=== PATIENT | male | born 1945 | race African-American/Black ===

== ENCOUNTER 2017-11-11 05:47 | Inpatient (IN) | payer MEDICARE, BC ==
[~2017-11-11] VITALS: Ht 180.3 cm; Wt 81.6 kg
[2017-11-11] VITALS (12 sets, daily range): BP systolic 123–163; BP diastolic 62–78
[2017-11-11] MEDS ORDERED: GLIPIZIDE5 MG ORAL (06:40)
[2017-11-11] MEDS ORDERED: HYDROCHLOROTHIA25 MG ORAL (06:40)
[2017-11-11] MEDS ORDERED: ATORVASTATIN CA20 MG ORAL (06:40)
[2017-11-11] MEDS ORDERED: METFORMIN HCL1000 M1 ORAL (06:40)
[2017-11-11] MEDS ORDERED: ceFAZolin sod 1 GM in NS 55 ML IVPB ONE (07:00)
[2017-11-11] MEDS ORDERED: fentaNYL 100 mcg/2 mL IV ONE (07:09)
[2017-11-11] MEDS ORDERED: Midazolam 2mg/2ml Inj ONE (07:10)
[2017-11-11] MEDS ORDERED: Propofol 200mg/20ml IV ONE (07:10)
[2017-11-11] MEDS ORDERED: Lidocaine 1% MPF 10mg/ml 5ml ONE (07:10)
[2017-11-11] MEDS ORDERED: cefOXitin 2gm Inj ONE (07:16)
[2017-11-11] MEDS ORDERED: Succinylcholine 20mg/ml 10ml vial ONE (07:18)
[2017-11-11] MEDS ORDERED: Zemuron 50mg/5ml Inj IV ONE (07:18)
[2017-11-11] MEDS ORDERED: ProvayBlue 5mg/ml 10ml amp INJ ONE (07:30)
[2017-11-11] MEDS ORDERED: Bupivacaine 0.5% Inj 30 ml vial INJ ONE (07:31)
[2017-11-11] MEDS ORDERED: NS Irrig 1000ml ONE (08:00)
[2017-11-11] MEDS ORDERED: LR 1000ml ONE (08:00)
[2017-11-11] MEDS ORDERED: Sterile Water Irrig 1000ml IRRIG ONE (08:00)
[2017-11-11] MEDS ORDERED: Neostigmine 1mg/ml 10ml Inj ONE (08:00)
--- NOTE | 2017-11-11 08:01 | Pre-Procedure Note/Attestation ---
Pre-Procedure Note/Attestation Complete Prior to Procedure Planned Procedure: not applicable Procedure Narrative: laparoscopic radical prostatectomy Indications for Procedure Pre-Operative Diagnosis: prostate cancer Attestation I attest that I discussed the nature of the procedure; its benefits; risks and complications; and alternatives (and the risks and benefits of such alternatives ), prior to the procedure, with the patient (or the patient's legal sales promotion representative). I attest that, if there was a reasonable possibility of needing a blood transfusion, the patient (or the patient's legal sales promotion representative) was given the [facility] standardized written summary, pursuant to the [place] Blood Safety Act ([place] Health and Safety Code # 1645, as amended). I attest that I re-evaluated the patient just prior to the surgery and that there has been no change in the patient's H&P, except as documented below: Aristeo Kelly MD Nov 11, 2017 08:01
[2017-11-11] MEDS ORDERED: NS Irrig 1000ml IRRIG ONE (08:36)
[2017-11-11] MEDS ORDERED: Morphine Sulfate 10mg/ml Inj ONE (09:15)
--- NOTE | 2017-11-11 09:15 | Anethesia Preoperative Eval ---
Anesthesia Pre-op PMH/ROS General Date of Evaluation: Nov 11, 2017 Time of Evaluation: 07:20 Anesthesiologist: Jose Alejandro ASA Score: ASA 3 Mallampati Score Class I : Soft palate, uvula, fauces, pillars visible Class II: Soft palate, uvula, fauces visible Class III: Soft palate, base of uvula visible Class IV: Only hard plate visible Mallampati Classification: Class II Surgeon: Robin Diagnosis: Prostate CA Surgical Procedure: Laparoscopic prostatectomy Anesthesia History: none Social History: smoking - h/o, current smoker Family History: no anesthesia problems Allergies: Coded Allergies: No Known Allergies (Unverified , 11/10/17) Past Medical History Cardiovascular: Reports: HTN, arrhythmia - 1st oA-V block; Denies: CAD, [place], valve dz, other Pulmonary: Denies: asthma, COPD, JAMAL, other Gastrointestinal/Genitourinary: Reports: GERD, other - Prostate CA with enlargement; Denies: CRI, ESRD Neurologic/Psychiatric: Denies: dementia, CVA, depression/anxiety, TIA, other Endocrine: Reports: DM - on pills; Denies: hypothyroidism, steroids, other HEENT: Denies: cataract (L), cataract (R), glaucoma, [place] (L), [place] (R), other Hematology/Immune: Reports: anemia - mild; Denies: DVT, bleeding disorder, other Musculoskeletal/Integumentary: Denies: OA, RA, DJD, DDD, edema, other PMH Narrative: as above PSxH Narrative: Hip arthroplasty Anesthesia Pre-op Phys. Exam Physician Exam Last Vital Signs Date Time Temp Pulse Resp B/P (MAP) Pulse Ox O2 Delivery O2 Flow Rate FiO2 11/11/17 06:43 Room Air 11/11/17 06:19 97.8 68 18 131/67 (88) 99 97.8 Constitutional: NAD Neurologic: CN 2-12 intact Cardiovascular: RRR, no M/R/G Respiratory: CTA Gastrointestinal: S/NT/ND Airway Exam Mallampati Score: Class II MO: full Neck: flexible ROM: full Teeth: intact Dentures: no upper, no lower Anesthesia Pre-op A/P Labs see chart Accucheck 89 at admission Studies Pre-op Studies: EKG - see charrt, CXR - WNL, echo - EF 60% Risk Assessment & Plan Assessment: ASA 3 Plan: GA with ETT possible intraoperative blood transfusion Status Change Before Surgery: No Pre-Antibiotics Drug: Cefoxitin 2gr Given Within 1 Hr of Incision: Yes Time Given: 08:20 Darrick Blount MD Nov 11, 2017 09:15
[2017-11-11] MEDS ORDERED: Ketorolac 30mg Inj ONE (09:16)
[2017-11-11] MEDS ORDERED: Glycopyrrolate 0.2mg/ml 1ml Vial ONE (09:16)
[2017-11-11] MEDS ORDERED: Sodium Chloride 10ml vial INJ ONE (09:19)
[2017-11-11] MEDS ORDERED: LR 1000ml 1,000 ML IVLG SCH (09:51)
[2017-11-11] MEDS ORDERED: fentaNYL 100 mcg/2 mL IV PRN (10:00)
[2017-11-11] MEDS ORDERED: DiphenhydrAMINE 50mg/ml Inj IVP PRN (10:00)
[2017-11-11] MEDS ORDERED: Morphine Sulfate 2mg/ml Inj(IV/IM USE ONLY) IVP PRN (10:00)
--- NOTE | 2017-11-11 10:38 | Brief Operative Note ---
Immediate Post Operative Note Operative Note Pre-op Diagnosis: prostate cancer Procedure: laparoscopic prostatectomy Post-op Diagnosis: same Post-op Diagnosis: same as pre-op Surgeon: suresh kelly Harvest Worker Field Crop: awilda cook Anesthesia: general Specimen: yes Complications: none Condition: stable Fluids: 1000 Estimated Blood Loss: minimal Drains: MELANI Implant(s) used?: No Aristeo Kelly MD Nov 11, 2017 10:38
[2017-11-11] MEDS ORDERED: Norco 5mg/325mg tab ORAL PRN (10:45)
[2017-11-11] MEDS ORDERED: Ketorolac 30mg Inj IV PRN (10:45)
--- NOTE | 2017-11-11 11:53 | Immediate Post-Op Evaluation ---
Immediate Post-Op Evalulation Immediate Post-Op Evalulation Procedure: Radical laparoscopic prostatectomy Date of Evaluation: Nov 11, 2017 Time of Evaluation: 10:45 IV Fluids: 2500 Blood Products: Albumin 250 Estimated Blood Loss: 200 Urinary Output: n/a Blood Pressure Systolic: 142 Blood Pressure Diastolic: 68 Pulse Rate: 72 Respiratory Rate: 20 O2 Sat by Pulse Oximetry: 98 Temperature (Fahrenheit): 97.8 Pain Score (1-10): 2 Nausea: No Vomiting: No Complications none Patient Status: reacts, patent, extubated, none Hydration Status: adequate Darrick Blount MD Nov 11, 2017 11:53
[2017-11-11 12:09] LABS: BASOPHILS % (AUTO) 0.4 % (0.0-2.0); EOSINOPHILS % (AUTO) 0.4 % (0.0-3.0); HEMATOCRIT 32.1 % (42.0-52.0); HEMOGLOBIN 11.1 G/DL (14.2-18.0); LYMPHOCYTES % (AUTO) 15.2 % (20.0-45.0); MEAN CORPUSCULAR VOLUME 90 FL (80-99); MONOCYTES % (AUTO) 5.4 % (1.0-10.0); NEUTROPHILS % (AUTO) 78.6 % (45.0-75.0); PLATELET COUNT 174 K/UL (150-450); RED BLOOD COUNT 3.56 M/UL (4.70-6.10); RED CELL DISTRIBUTION WIDTH 11.1 % (11.6-14.8); WHITE BLOOD COUNT 10.6 K/UL (4.8-10.8)
[2017-11-11 12:23] LABS: ANION GAP 10 mmol/L (5-15); BLOOD UREA NITROGEN 16 mg/dL (7-18); CALCIUM 8.5 MG/DL (8.5-10.1); CARBON DIOXIDE 28 MMOL/L (21-32); CHLORIDE 103 MMOL/L (98-107); CREATININE 1.2 MG/DL (0.55-1.30); POTASSIUM 4.3 MMOL/L (3.5-5.1); SODIUM 141 MMOL/L (136-145)
[2017-11-11] MEDS: D5 1/2NS w/KCl 20mEq 1,000 ML IV SCH (15:06)
[2017-11-11] MEDS: ceFAZolin sod 1 GM in D5W 55 ML IV SCH (15:07)
[2017-11-11] MEDS: Docusate 100mg cap ORAL SCH (18:26)
[2017-11-11] MEDS: Ketorolac 30mg Inj IV SCH ×2 (18:26→23:02)
--- NOTE | 2017-11-11 22:45 | Operative Note - Dictated ---
DATE OF OPERATION: 11/11/2017 PREOPERATIVE DIAGNOSIS: Prostate cancer. POSTOPERATIVE DIAGNOSIS: Prostate cancer. RICE FARMER SURGEON: Abdelrahman Garrido M.D. OPERATING SURGEON: Aristeo Kelly M.D. FINDINGS: Enlarged prostate. INDICATION FOR SURGERY: The patient was diagnosed with prostate cancer, Karl 6, multifocal. Treatment options were explained to him at great length including all potential complications. All the potential different treatment options, such as radiation therapy, hormone therapy, and surgery were discussed. He elected to have laparoscopic radical prostatectomy and signed a consent. He was brought to the operating room, placed in supine position, and prepped and draped in standard fashion. Under general anesthesia, Veress needle was placed at the umbilicus and 5 trocars two 12 and three 5s were placed in the standard position. Dissection started underneath the bladder mobilizing seminal vesicles and vas deferens, which was in the midline. The fascia was opened. After that, dissection was carried anteriorly bladder from the pubis. Endopelvic fascia was opened with Harmonic Scalpel. Endo-CHARLES was placed in the dorsal venous complex. Bladder neck sparing technique was used to separate bladder from the prostate and the prostate was removed preserving both neurovascular bundles. After that, the anastomosis was created over 20-Italian Rodney catheter with running 2-0 Monocryl suture. The wound was irrigated. There was a small leak on the right side, which was reinforced with [id number] suture. After that, there was no evidence of leakage. With bladder irrigation, MELANI drain was placed and left indwelling and the prostate was removed with seminal vesicle for pathologic examination. The patient tolerated the procedure well. No other complications. ESTIMATED BLOOD LOSS: Approximately 100 mL. Aristeo Kelly M.D. DR: MIRIAM JOB#: [id number] CC:
--- NOTE | 2017-11-11 23:45 | Operative Note - Dictated ---
DATE OF OPERATION: 11/11/2017 SURGEON: Abdelrahman Garrido M.D. MEDIA TRAFFIC MANAGER: Aristeo Kelly M.D. ANESTHESIA: General endotracheal. ANESTHESIOLOGIST: Darrick Blount M.D. PREOPERATIVE DIAGNOSIS: Prostate cancer. POSTOPERATIVE DIAGNOSIS: Prostate cancer and intraabdominal adhesions. PROCEDURE PERFORMED: Laparoscopic lysis of adhesions. BACKGROUND: The patient is a 70-year-old male with prostate cancer, who was elected to undergo laparoscopic prostatectomy. During laparoscopic prostatectomy, dense adhesions in the left lower quadrant between the small bowel and sigmoid colon, were found to the abdominal wall that could prevent safe access to the prostate gland and I was requested by urological surgeon, Dr. Aristeo Kelly, to assist in lysis of adhesions. INTRAOPERATIVE FINDINGS: As above. OPERATIVE PROCEDURE: A pneumoperitoneum was created by Dr. Aristeo Kelly and two 5 mm trocars were placed in the right abdomen. After that, the above-mentioned findings were appreciated. I started lysis using sharp and blunt dissections through the right side 5 mm trocar. I took down the adhesions between the omentum and the anterior abdominal wall. The sigmoid was densely adhered to the anterior abdominal wall and the pelvic inlet. Using endoscopic marivel, the adhesions between the sigmoid and the pelvic intlet were sharply taken down. Complete mobilization of the sigmoid was achieved. That allowed to reflect the bowel. By this maneuver, safe access to the prostate gland was gained and the rest of the procedure was performed by Dr. Aristeo Kelly and he will dictate the report in detail separately. Abdelrahman Garrido M.D. DR: ANDREW JOB#: [id number] CC: MALINI
[2017-11-12] VITALS: BP 114/63
[2017-11-12] MEDS: D5 1/2NS w/KCl 20mEq 1,000 ML IV SCH ×2 (00:07→10:00)
[2017-11-12] MEDS: ceFAZolin sod 1 GM in D5W 55 ML IV SCH (00:07)
[2017-11-12 04:00] VITALS: BP 126/61
[2017-11-12] MEDS: Ketorolac 30mg Inj IV SCH ×4 (04:55→22:02)
[2017-11-12 07:53] LABS: BASOPHILS % (AUTO) 0.7 % (0.0-2.0); EOSINOPHILS % (AUTO) 0.9 % (0.0-3.0); HEMATOCRIT 27.4 % (42.0-52.0); HEMOGLOBIN 9.6 G/DL (14.2-18.0); LYMPHOCYTES % (AUTO) 18.1 % (20.0-45.0); MEAN CORPUSCULAR VOLUME 89 FL (80-99); MONOCYTES % (AUTO) 8.6 % (1.0-10.0); NEUTROPHILS % (AUTO) 71.8 % (45.0-75.0); PLATELET COUNT 151 K/UL (150-450); RED BLOOD COUNT 3.08 M/UL (4.70-6.10); RED CELL DISTRIBUTION WIDTH 10.6 % (11.6-14.8); WHITE BLOOD COUNT 5.4 K/UL (4.8-10.8)
[2017-11-12 07:58] LABS: ANION GAP 5 mmol/L (5-15); BLOOD UREA NITROGEN 11 mg/dL (7-18); CARBON DIOXIDE 26 MMOL/L (21-32); CHLORIDE 105 MMOL/L (98-107); CREATININE 0.9 MG/DL (0.55-1.30); POTASSIUM 3.5 MMOL/L (3.5-5.1); SODIUM 136 MMOL/L (136-145)
[2017-11-12 08:00] VITALS: BP 116/66
[2017-11-12] MEDS: Docusate 100mg cap ORAL SCH ×2 (09:44→17:22)
[2017-11-12 12:00] VITALS: BP 124/65
--- NOTE | 2017-11-12 14:06 | 48 Hour Post Anesthesia Eval ---
Post Anesthesia Evaluation Procedure: Radical laparoscopic prostatectomy Date of Evaluation: Nov 12, 2017 Time of Evaluation: 14:05 Blood Pressure Systolic: 136 0: 72 Pulse Rate: 64 Respiratory Rate: 20 Temperature (Fahrenheit): 97.8 O2 Sat by Pulse Oximetry: 98 Airway: patent Nausea: No Vomiting: No Pain Intensity: 3 Hydration Status: adequate Cardiopulmonary Status: stable Mental Status/LOC: patient returned to baseline Follow-up Care/Observations: n/a Post-Anesthesia Complications: none Follow-up care needed: N/A Darrick Blount MD Nov 12, 2017 14:06
[2017-11-12 16:00] VITALS: BP 108/56
[2017-11-12 20:00] VITALS: BP 121/72
--- NOTE | 2017-11-12 20:15 | History and Physical Report ---
DATE OF ADMISSION: 11/12/2017 HISTORY AND PHYSICAL/INTERNAL MEDICINE CONSULTATION HISTORY OF PRESENT ILLNESS: This is a 72-year-old male, who has undergone laparoscopic radical prostatectomy for prostate carcinoma. He is doing well postop day #1. PAST MEDICAL HISTORY: Notable for diabetes mellitus, hypertension, and hyperlipidemia. HOME MEDICATIONS: Glipizide, Lipitor, lisinopril, and metformin. ALLERGIES: None reported. REVIEW OF SYSTEMS: He denies any headaches, hematemesis, hematochezia, night sweats, or weight loss. PHYSICAL EXAMINATION: GENERAL: Reveals a 72-year-old male. VITAL SIGNS: Blood pressure 130/70, heart rate . He is afebrile. HEENT: Unremarkable. LUNGS: Clear breath sounds bilaterally. ABDOMEN: Soft. NEUROLOGIC: Nonfocal. LABORATORY TESTING: Lab testing shows hemoglobin 11.6 and white count 5.4. Chemistries are unremarkable except for creatinine of 0.9 and glucose 153. IMPRESSION: 1. Prostate carcinoma, status post prostatectomy. 2. Hypertension. 3. Diabetes mellitus. 4. Hyperlipidemia. DISCUSSION: Continue medications and postoperative care. The patient will be followed carefully by Dr. Kelly and myself. Presently, his laboratories are satisfactory. I will follow as yarn carrier. Pipo Salinas M.D. DR: MIKIE JOB#: [id number] CC:
[2017-11-13] VITALS: BP 116/65
[2017-11-13 04:00] VITALS: BP 127/78
[2017-11-13] MEDS: Ketorolac 30mg Inj IV SCH (04:34)
[2017-11-13] MEDS ORDERED: NovoLOG Insulin Flexpen SUBQ SCH (06:30)
[2017-11-13 07:05] LABS: BASOPHILS % (AUTO) 0.9 % (0.0-2.0); EOSINOPHILS % (AUTO) 2.9 % (0.0-3.0); LYMPHOCYTES % (AUTO) 33.6 % (20.0-45.0); MEAN CORPUSCULAR VOLUME 89 FL (80-99); MONOCYTES % (AUTO) 11.2 % (1.0-10.0); NEUTROPHILS % (AUTO) 51.4 % (45.0-75.0); PLATELET COUNT 142 K/UL (150-450); RED BLOOD COUNT 3.15 M/UL (4.70-6.10); RED CELL DISTRIBUTION WIDTH 10.4 % (11.6-14.8); WHITE BLOOD COUNT 5.6 K/UL (4.8-10.8)
[2017-11-13 08:00] VITALS: BP 130/76
[2017-11-13] MEDS: Docusate 100mg cap ORAL SCH (08:34)
--- NOTE | 2017-11-13 08:42 | Pulmonology Progress Note ---
Assessment/Plan Assessment/Plan IMPRESSION: 1. Prostate carcinoma, status post prostatectomy. 2. Hypertension. 3. Diabetes mellitus. 4. Hyperlipidemia. DISCUSSION: Continue medications and postoperative care. The patient will be followed carefully by Dr. Kelly and myself. Presently, his laboratories are satisfactory. Tolerating diet Will dc home PO levaquin, Colace and [place] Subjective Interval Events: Doing well Constitutional: Reports: no symptoms HEENT: Repors: no symptoms Respiratory: Reports: no symptoms Cardiovascular: Reports: no symptoms Gastrointestinal/Abdominal: Reports: no symptoms Allergies: Coded Allergies: No Known Allergies (Unverified , 11/10/17) Objective Last 24 Hour Vital Signs Date Time Temp Pulse Resp B/P (MAP) Pulse Ox O2 Delivery O2 Flow Rate FiO2 11/13/17 04:00 98.8 71 20 127/78 (94) 97 98.8 11/13/17 00:00 98.2 66 20 116/65 (82) 97 98.2 11/12/17 21:00 Room Air 11/12/17 20:00 98.3 72 18 121/72 (88) 98 98.3 11/12/17 16:00 98.6 75 18 108/56 (73) 96 98.6 11/12/17 14:06 208.0 64 20 98 11/12/17 12:00 97.3 86 20 124/65 (84) 96 97.3 11/12/17 09:00 Nasal Cannula 2.0 Intake and Output 11/12/17 11/13/17 19:00 07:00 Intake Total 1500 ml Output Total 2055 ml 2200 ml Balance -555 ml -2200 ml Intake Oral 1200 ml IV Total 300 ml Output Urine Total 2000 ml 2200 ml Drainage Total 55 ml General Appearance: no acute distress HEENT: normocephalic Respiratory/Chest: chest wall non-tender, lungs clear Cardiovascular: normal peripheral pulses, normal rate Laboratory Tests 11/13/17 05:10: White Blood Count 5.6, Red Blood Count 3.15L, Hemoglobin 10.0L, Hematocrit 28.0L , Mean Corpuscular Volume 89, Mean Corpuscular Hemoglobin 31.6H, Mean Corpuscular Hemoglobin Concent 35.6, Red Cell Distribution Width 10.4L, Platelet Count 142L, Mean Platelet Volume 7.0, Neutrophils (%) (Auto) 51.4, Lymphocytes (%) (Auto) 33.6, Monocytes (%) (Auto) 11.2H, Eosinophils (%) (Auto) 2.9, Basophils (%) (Auto) 0.9 Current Medications Medications (Trade) Dose Ordered Sig/Eddie Route PRN Reason Start Time Stop Time Status Last Admin Dose Admin Acetaminophen (Tylenol) 650 mg Q4H PRN ORAL FEVER 11/11/17 10:45 12/11/17 10:44 Acetaminophen (Tylenol) 650 mg Q6H PRN ORAL Mild Pain (Pain Scale 1-3) 11/11/17 10:45 12/11/17 10:44 Acetaminophen/ Hydrocodone Bitart ([place] 5/325) 1 tab Q4H PRN ORAL Moderate Pain (Pain Scale 4-6) 11/11/17 10:45 11/18/17 10:44 11/11/17 15:07 Dextrose (Dextrose 50%) 25 ml STAT PRN IV Hypoglycemia 11/12/17 22:45 12/12/17 22:44 Dextrose (Dextrose 50%) 50 ml STAT PRN IV Hypoglycemia 11/12/17 22:45 12/12/17 22:44 Docusate Sodium (Colace) 100 mg TWICE A DAY ORAL 11/11/17 18:00 12/11/17 17:59 11/13/17 08:34 Glipizide (Glucotrol) 2.5 mg BID ORAL 11/13/17 09:00 12/13/17 08:59 11/13/17 08:34 Hydromorphone HCl (Dilaudid) 2 mg Q3H PRN IVP pain score 7-10 11/11/17 10:45 11/18/17 10:44 Insulin Aspart (NovoLOG) BEFORE MEALS AND HS SUBQ 11/13/17 06:30 12/13/17 06:29 Ketorolac Tromethamine (Toradol 30mg) 15 mg Q6H IV 11/11/17 16:45 11/16/17 10:44 11/13/17 04:34 Levofloxacin (Levaquin) 250 mg DAILY ORAL 11/13/17 09:00 11/20/17 08:59 11/13/17 08:34 Metformin HCl (Glucophage) 1,000 mg BID ORAL 11/13/17 09:00 12/13/17 08:59 11/13/17 08:34 Ondansetron HCl (Zofran) 4 mg Q6H PRN IVP Nausea & Vomiting 11/11/17 10:45 12/11/17 10:44 Temazepam (Restoril) 7.5 mg DAILYPRN PRN ORAL Insomnia 11/11/17 10:45 11/18/17 10:44 Pipo Salinas MD Nov 13, 2017 08:42
[2017-11-13] MEDS ORDERED: NORCO 5-325 TA1 EACH ORAL (08:45)
[2017-11-13] MEDS ORDERED: COLACE100 MG ORAL (08:45)
[2017-11-13] MEDS ORDERED: LEVAQUIN250 M1 ORAL (08:45)
[2017-11-13] MEDS ORDERED: metFORMIN 500mg tab ORAL SCH (09:00)
[2017-11-13] MEDS ORDERED: GlipiZIDE 5mg tab ORAL SCH (09:00)
--- NOTE | 2017-11-16 10:50 | Discharge Summary ---
Discharge Summary Hospital Course Date of Admission Nov 11, 2017 at 12:59 Date of Discharge Nov 13, 2017 at 11:44 Admitting Diagnosis prostate cancer Reason for Hospitalization: elective surgery LUCIO Laguna is a 72 year old male who was admitted on Nov 11, 2017 at 12:59 for prostate cancer. Patient was admitted for elective surgery. Consultations dr Salinas IM Procedures s/p by 11/11/17 dr Kelly Laparoscopic radical prostatectomy s/p 11/11/[address] Garrido Laparoscopic lysis of adhesions. Hospital Course Status post surgery course of recovery uneventful initially IV fluids pain management addressed and controlled incision clean dry and intact empiric antibiotic Rodney to gravity with sufficient urine output diet as tolerated, able to tolerate ,antiemetics pr MELANI drain with serosanguineous drainage , output closely monitored bowel regimen instituted home medications resumed patient was working with physical therapist, fall precautions maintained patient was cleared for discharge home with home health services Rodney catheter to leg bag, discharge instruction provided outpatient follow-up with surgeon as advised FINAL DIAGNOSES Prostate cancer Status post laparoscopic radical prostatectomy Hypertension Diabetes mellitus Hyperlipidemia Discharge Medications New Medications: Docusate Sodium* (Colace*) 100 Mg Capsule 100 MG ORAL TWICE A DAY for 30 Days, CAP Hydrocodone Bit/Acetaminophen 5-325* ([place] 5-325*) 1 Each Tablet 1 TAB ORAL Q4H PRN for 14 Days, TAB Levofloxacin* (Levaquin*) 250 Mg Tablet 250 MG ORAL DAILY for 7 Days, TAB Continued Medications: Atorvastatin Calcium* (Atorvastatin Calcium*) 20 Mg Tablet 20 MG ORAL BEDTIME, TAB (This prescription has been renewed) Glipizide* (Glipizide*) 5 Mg Tablet 2.5 MG ORAL BIDAC, TAB (This prescription has been renewed) Hydrochlorothiazide* (Hydrochlorothiazide*) 25 Mg Tablet 25 MG ORAL DAILY, TAB (This prescription has been renewed) Metformin Hcl* (Metformin Hcl*) 1,000 Mg Tablet 1000 MG ORAL BID, TAB (This prescription has been renewed) Discharge Condition Upon Discharge: stable Discharge Disposition Patient was discharged to Home with Home Health() Discharge Instructions Discharge Instructions Special Instructions I have been assigned to complete a D/C Summary on this account. I was not involved in the patient management Jing Mcgrath NP Nov 16, 2017 10:50
== END 2017-11-13 11:44 | disposition home health service (06) | DRG 708 ==
LOC: SUR 05:47 → 3E 12:59
PROC: 0DNW4ZZ Release Peritoneum, Percutaneous Endoscopic Approach (ICD-10-PCS; principal; 2017-11-11 07:30)
PROC: 0VT04ZZ Resection of Prostate, Percutaneous Endoscopic Approach (ICD-10-PCS; principal; 2017-11-11 07:30)
DX: C61 Malignant neoplasm of prostate (principal); E11.9 Type 2 diabetes mellitus without complications; I10 Essential (primary) hypertension; E78.5 Hyperlipidemia, unspecified; K66.0 Peritoneal adhesions (postprocedural) (postinfection)
CPT/HCPCS: 36415; 80048; 82962; 85025; 86850; 86900; 86901; 87081; 94003; 94150; J1815; J2250; J2710

== ENCOUNTER 2019-01-05 05:42 | Day surgery (SDC) | payer MEDICARE, BC ==
[~2019-01-05] VITALS: Ht 180.3 cm; Wt 81.6 kg
[2019-01-05] VITALS (11 sets, daily range): BP systolic 131–185; BP diastolic 75–105
[~2019-01-05 05:42] MED LIST: ATORVASTATIN CA20 MG ORAL; COLACE100 MG ORAL; GLIPIZIDE5 MG ORAL; HYDROCHLOROTHIA25 MG ORAL; LEVAQUIN250 M1 ORAL; METFORMIN HCL1000 M1 ORAL; NORCO 5-325 TA1 EACH ORAL
[2019-01-05] MEDS ORDERED: ASPIR 8181 MG ORAL (06:26)
[2019-01-05] MEDS ORDERED: Gentamicin 80mg/100ml Premix IVPB ONE (07:00)
[2019-01-05] MEDS ORDERED: Vancomycin 1gm/D5W 275ml IVPB ONE ×2 (07:00)
--- NOTE | 2019-01-05 07:20 | Anethesia Preoperative Eval ---
Anesthesia Pre-op PMH/ROS General Date of Evaluation: Jan 05, 2019 Anesthesiologist: Carson ASA Score: ASA 2 Mallampati Score Class I : Soft palate, uvula, fauces, pillars visible Class II: Soft palate, uvula, fauces visible Class III: Soft palate, base of uvula visible Class IV: Only hard plate visible Mallampati Classification: Class II Surgeon: Robin Diagnosis: Erectile dysfunction Surgical Procedure: Penile prosthesis Anesthesia History: none Family History: no anesthesia problems Allergies: Coded Allergies: No Known Allergies (Unverified , 01/05/19) Medications: see eMAR Patient NPO?: Yes NPO Date: Jan 04, 2019 NPO Time: 22:00 Past Medical History Cardiovascular: Reports: HTN, other - HLD; Denies: CAD, [place], valve dz, arrhythmia Pulmonary: Denies: asthma, COPD, JAMAL, other Gastrointestinal/Genitourinary: Reports: GERD; Denies: CRI, ESRD, other Neurologic/Psychiatric: Denies: dementia, CVA, depression/anxiety, TIA, other Endocrine: Reports: DM; Denies: hypothyroidism, steroids, other HEENT: Denies: cataract (L), cataract (R), glaucoma, [place] (L), [place] (R), other Hematology/Immune: Denies: anemia, DVT, bleeding disorder, other Musculoskeletal/Integumentary: Denies: OA, RA, DJD, DDD, edema, other PSxH Narrative: prostatectomy, right knee arthroscopy, left THR Anesthesia Pre-op Phys. Exam Physician Exam Last Vital Signs Date Time Temp Pulse Resp B/P (MAP) Pulse Ox O2 Delivery O2 Flow Rate FiO2 01/05/19 06:33 Room Air 01/05/19 06:28 97.7 61 18 131/80 98 Constitutional: NAD Cardiovascular: RRR Respiratory: CTA Airway Exam Mallampati Score: Class II MO: full ROM: full Anesthesia Pre-op A/P Labs see chart Studies Pre-op Studies: EKG - RBBB=baseline Risk Assessment & Plan Assessment: ASA II Plan: GA Status Change Before Surgery: No Pre-Antibiotics Drug: vanco and gentamycin Given Within 1 Hr of Incision: Yes Radha Gallo MD Jan 05, 2019 07:20
[2019-01-05] MEDS ORDERED: Midazolam 2mg/2ml Inj ONE (07:21)
[2019-01-05] MEDS ORDERED: Lidocaine 1% MPF 10mg/ml 5ml ONE (07:21)
[2019-01-05] MEDS ORDERED: fentaNYL 100 mcg/2 mL IV ONE (07:21)
[2019-01-05] MEDS ORDERED: Propofol 200mg/20ml IV ONE (07:21)
[2019-01-05] MEDS ORDERED: NeoSporin Gu Irrig 1ml Amp IRRIG ONE (07:22)
[2019-01-05] MEDS ORDERED: Bacitracin Oint 15gm Tube TOPIC ONE (07:22)
[2019-01-05] MEDS ORDERED: Bacitracin 50000 Units Vial ONE (07:22)
[2019-01-05] MEDS ORDERED: Vancomycin 1gm vial IVPB ONE (07:24)
--- NOTE | 2019-01-05 07:50 | Pre-Procedure Note/Attestation ---
Pre-Procedure Note/Attestation Complete Prior to Procedure Planned Procedure: not applicable Procedure Narrative: Implantation of multicomponent penile prosthesis Indications for Procedure Pre-Operative Diagnosis: impotence ED Attestation I attest that I discussed the nature of the procedure; its benefits; risks and complications; and alternatives (and the risks and benefits of such alternatives ), prior to the procedure, with the patient (or the patient's legal telecommunications sales representative). I attest that, if there was a reasonable possibility of needing a blood transfusion, the patient (or the patient's legal telecommunications sales representative) was given the [facility] standardized written summary, pursuant to the [place] Blood Safety Act ([place] Health and Safety Code # 1645, as amended). I attest that I re-evaluated the patient just prior to the surgery and that there has been no change in the patient's H&P, except as documented below: Aristeo Kelly MD Jan 05, 2019 07:50
--- NOTE | 2019-01-05 10:13 | Immediate Post-Op Evaluation ---
Immediate Post-Op Evalulation Immediate Post-Op Evalulation Procedure: penile prosthesis Date of Evaluation: Jan 05, 2019 Time of Evaluation: 10:15 IV Fluids: 1L Blood Products: 0 Estimated Blood Loss: 25 Urinary Output: 0 Blood Pressure Systolic: 169 Blood Pressure Diastolic: 94 Pulse Rate: 84 Respiratory Rate: 16 O2 Sat by Pulse Oximetry: 99 Temperature (Fahrenheit): 97.5 Pain Score (1-10): 0 Nausea: No Vomiting: No Complications 0 Patient Status: awake, reacts, patent, none Hydration Status: adequate Drug: Vanco and gentamycin Given Within 1 Hr of Incision: Yes Radha Gallo MD Jan 05, 2019 10:13
--- NOTE | 2019-01-05 10:13 | 48 Hour Post Anesthesia Eval ---
Post Anesthesia Evaluation Procedure: penile prosthesis Date of Evaluation: Jan 05, 2019 Airway: patent Nausea: No Vomiting: No Pain Intensity: 0 Hydration Status: adequate Cardiopulmonary Status: at basleine Mental Status/LOC: patient returned to baseline Post-Anesthesia Complications: 0 Follow-up care needed: ready to discharge Radha Gallo MD Jan 05, 2019 10:13
--- NOTE | 2019-01-05 10:27 | Brief Operative Note ---
Immediate Post Operative Note Operative Note Pre-op Diagnosis: impotence ED Procedure: ipp Post-op Diagnosis: same Post-op Diagnosis: same as pre-op Surgeon: Dalton Kelly Anesthesia: general Specimen: none Complications: none Condition: stable Fluids: 500 Estimated Blood Loss: minimal Implant(s) used?: No Aristeo Kelly MD Jan 05, 2019 10:27
[2019-01-05] MEDS ORDERED: HYDROcodone/Acetamin 5/325 tab ORAL PRN (10:30)
[2019-01-05] MEDS ORDERED: HYDROmorphone 1mg/ml Carpuject SUBQ PRN (10:30)
[2019-01-05] MEDS ORDERED: D5 1/2NS 1,000 ML IV SCH (10:30)
[2019-01-05] MEDS ORDERED: Tylenol #3 tab (300mg/30mg) ORAL PRN (10:30)
[2019-01-05] MEDS ORDERED: LR 1000ml 1,000 ML IVLG SCH (10:37)
[2019-01-05] MEDS ORDERED: LORazepam Inj 2mg/ml 1ml IV PRN (10:45)
[2019-01-05] MEDS ORDERED: Metoclopramide 10mg/2ml Inj IVP PRN (10:45)
[2019-01-05] MEDS ORDERED: Midazolam 2mg/2ml Inj IVP PRN (10:45)
[2019-01-05] MEDS ORDERED: DiphenhydrAMINE 50mg/ml Inj IVP PRN (10:45)
[2019-01-05] MEDS ORDERED: fentaNYL 100 mcg/2 mL IV PRN (10:45)
[2019-01-05] MEDS: Hydromorphone 0.5mg/0.5ml inj IVP PRN ×2 (10:48→11:01)
--- NOTE | 2019-01-08 04:00 | Operative Note - Dictated ---
DATE OF OPERATION: 01/05/2019 PREOPERATIVE DIAGNOSES: 1. Organic impotence. 2. History of prostate cancer, status post radical prostatectomy. POSTOPERATIVE DIAGNOSES: 1. Organic impotence. 2. History of prostate cancer status post radical prostatectomy. OPERATION: implantation of 3-piece penile prosthesis. OPERATED BY: Aristeo Kelly M.D. ANESTHESIA: General. FINDINGS: Obstructed corpora. INDICATIONS FOR SURGERY: The patient had a radical prostatectomy and baseline erectile dysfunction, which worsened after surgery. All treatment options were not successful and he agreed to have penile prosthesis. All potential complications were explained. He signed a consent. DESCRIPTION OF PROCEDURE: He was brought to the operating room, placed in supine position, prepped and draped in standard fashion. Under general anesthesia, penoscrotal incision was made and the corpora was mobilized on both sides, which was dilated to 14 cm with Hegar dilators and measured to 19 cm. Two penile prosthesis, 700 CX were placed with 1 cm each of adapters both corpora. Corpora was closed with a running Vicryl suture. After that, was placed through penoscrotal incision into the retrovesical space and cleared off 65 mL using normal saline. Pump was placed into the subdartos fascia of the scrotum. All the components were reconnected using standard and tested. Wound was copiously irrigated, closed in two layers, subcuticular closure for the skin. Aristeo Kelly M.D. DR: Pranav JOB#: [id number] CC:
== END 2019-01-05 12:30 | disposition home or self-care (01) ==
LOC: SUR 05:42
DX: N52.9 Male erectile dysfunction, unspecified (principal); I10 Essential (primary) hypertension; E78.5 Hyperlipidemia, unspecified; K21.9 Gastro-esophageal reflux disease without esophagitis; E11.9 Type 2 diabetes mellitus without complications; I45.10 Unspecified right bundle-branch block; Z96.642 Presence of left artificial hip joint; Z90.79 Acquired absence of other genital organ(s); Z85.46 Personal history of malignant neoplasm of prostate
CPT/HCPCS: 54405; 82962; C1813; J1170; J1580; J2250; J2704; J3010; J3370; 94003; 94150

== ENCOUNTER 2019-06-22 05:43 | Day surgery (SDC) | payer MEDICARE, BC ==
[2019-06-22] VITALS (12 sets, daily range): BP systolic 140–152; BP diastolic 73–88
[~2019-06-22] VITALS: Ht 180.3 cm; Wt 78.5 kg
[~2019-06-22 05:43] MED LIST changes: +ASPIR 8181 MG ORAL
[2019-06-22] MEDS ORDERED: NESINA25 MG PO (06:10)
[2019-06-22] MEDS ORDERED: AMLODIPINE BESYL5 MG ORAL (06:21)
[2019-06-22] MEDS ORDERED: ceFAZolin sod 1 GM in NS 55 ML IVPB ONE (07:00)
[2019-06-22] MEDS ORDERED: LR 1000ml 1,000 ML IVLG SCH (07:01)
--- NOTE | 2019-06-22 07:13 | Anethesia Preoperative Eval ---
Anesthesia Pre-op PMH/ROS General Date of Evaluation: Jun 22, 2019 Time of Evaluation: 07:24 Anesthesiologist: Rudi ASA Score: ASA 3 Mallampati Score Class I : Soft palate, uvula, fauces, pillars visible Class II: Soft palate, uvula, fauces visible Class III: Soft palate, base of uvula visible Class IV: Only hard plate visible Mallampati Classification: Class II Surgeon: Robin Diagnosis: [place] CA Surgical Procedure: TURBT Anesthesia History: none Family History: no anesthesia problems Allergies: Coded Allergies: No Known Allergies (Unverified , 06/22/19) Medications: see eMAR Patient NPO?: Yes Past Medical History Cardiovascular: Reports: HTN, other - HL Gastrointestinal/Genitourinary: Reports: other - Prostate CA Endocrine: Reports: DM Musculoskeletal/Integumentary: Reports: other - Back Pain PSxH Narrative: R Knee, L HIP Sx, Prostatectomy Anesthesia Pre-op Phys. Exam Physician Exam Last Vital Signs Date Time Temp Pulse Resp B/P (MAP) Pulse Ox O2 Delivery O2 Flow Rate FiO2 06/22/19 06:15 Room Air 06/22/19 06:11 97.0 66 18 148/78 99 Constitutional: NAD Neurologic: CN 2-12 intact Cardiovascular: RRR Respiratory: CTA Gastrointestinal: S/NT/ND Airway Exam Mallampati Score: Class II MO: full ROM: full Teeth: missing, intact Anesthesia Pre-op A/P Risk Assessment & Plan Assessment: ASA 3 Plan: GA, SED, GlideScope Go Status Change Before Surgery: No Pre-Antibiotics Dru Gram Ancef IV Given Within 1 Hr of Incision: Yes Time Given: 07:36 Giorgio Grijalva MD Jun 22, 2019 07:13
[2019-06-22] MEDS ORDERED: HYDROcodone/Acetamin 5/325 tab ORAL PRN ×2 (07:15→15:00)
[2019-06-22] MEDS ORDERED: Ketorolac 30mg Inj IV PRN ×2 (07:15)
[2019-06-22] MEDS ORDERED: Metoclopramide 10mg/2ml Inj IVP PRN (07:15)
[2019-06-22] MEDS ORDERED: HYDROcodone/Acetamin 7.5/325 tab ORAL PRN (07:15)
[2019-06-22] MEDS ORDERED: Meperidine 25mg/0.5ml Inj (FOR RIGORS ONLY) IV PRN (07:15)
[2019-06-22] MEDS ORDERED: Atropine Sulfate 0.4mg/ml inj IVP PRN (07:15)
[2019-06-22] MEDS ORDERED: Labetalol 5mg/ml 20ml vial IV PRN (07:15)
[2019-06-22] MEDS ORDERED: oxyCODONE HCL/Acetaminophen 5/325mg ORAL PRN (07:15)
[2019-06-22] MEDS ORDERED: Midazolam 2mg/2ml Inj IVP PRN (07:15)
[2019-06-22] MEDS ORDERED: Acetaminophen (Non formulary) 100 ML IV ONE (07:15)
[2019-06-22] MEDS ORDERED: DiphenhydrAMINE 50mg/ml Inj IVP PRN (07:15)
[2019-06-22] MEDS ORDERED: Hydromorphone 0.5mg/0.5ml inj IVP PRN (07:15)
[2019-06-22] MEDS ORDERED: LORazepam Inj 2mg/ml 1ml IV PRN (07:15)
[2019-06-22] MEDS ORDERED: fentaNYL 100 mcg/2 mL IV PRN (07:15)
[2019-06-22] MEDS ORDERED: Rocuronium Bromide 50mg/5ml Inj IV ONE (07:16)
[2019-06-22] MEDS ORDERED: Iothalamate Meglumine 60% 50ML INJ ONE (07:20)
[2019-06-22] MEDS ORDERED: fentaNYL 100 mcg/2 mL IV ONE (07:22)
[2019-06-22] MEDS ORDERED: Propofol 200mg/20ml IV ONE ×2 (07:23→07:34)
[2019-06-22] MEDS ORDERED: Lidocaine 1% MPF 10mg/ml 5ml ONE (07:23)
[2019-06-22] MEDS ORDERED: Sodium Chloride 10ml vial INJ ONE (07:23)
[2019-06-22] MEDS ORDERED: Lidocaine 1% Plain 30 ml INJ ONE (07:26)
[2019-06-22] MEDS ORDERED: Sterile Water Irrig 1000ml IRRIG ONE (07:30)
[2019-06-22] MEDS ORDERED: NS Irrig 1000ml ONE (07:30)
[2019-06-22] MEDS ORDERED: Sterile Water Irrig 2000ml IRRIG ONE ×3 (07:30→08:36)
--- NOTE | 2019-06-22 07:48 | Pre-Procedure Note/Attestation ---
Pre-Procedure Note/Attestation Complete Prior to Procedure Planned Procedure: not applicable Procedure Narrative: TURBT RPG Indications for Procedure Pre-Operative Diagnosis: bladder tumor Attestation I attest that I discussed the nature of the procedure; its benefits; risks and complications; and alternatives (and the risks and benefits of such alternatives ), prior to the procedure, with the patient (or the patient's legal petroleum products sales representative). I attest that, if there was a reasonable possibility of needing a blood transfusion, the patient (or the patient's legal petroleum products sales representative) was given the [facility] standardized written summary, pursuant to the Gilberto Kana Blood Safety Act ([place] Health and Safety Code # 1645, as amended). I attest that I re-evaluated the patient just prior to the surgery and that there has been no change in the patient's H&P, except as documented below: Aristeo Kelly MD Jun 22, 2019 07:48
[2019-06-22] MEDS ORDERED: Neostigmine 1mg/ml 10ml Inj ONE (08:14)
[2019-06-22] MEDS ORDERED: Glycopyrrolate 0.2mg/ml 1ml Vial ONE (08:14)
--- NOTE | 2019-06-22 08:28 | Immediate Post-Op Evaluation ---
Immediate Post-Op Evalulation Immediate Post-Op Evalulation Procedure: TURBT Date of Evaluation: Jun 22, 2019 Time of Evaluation: 09:03 IV Fluids: 500 LR Blood Products: 0 Estimated Blood Loss: 10 Urinary Output: 0 Blood Pressure Systolic: 145 Blood Pressure Diastolic: 89 Pulse Rate: 56 Respiratory Rate: 16 O2 Sat by Pulse Oximetry: 100 Temperature (Fahrenheit): 98.4 Pain Score (1-10): 2 Nausea: No Vomiting: No Complications 0 Patient Status: awake, reacts, patent, extubated, none Hydration Status: adequate Dru Gram Ancef IV Given Within 1 Hr of Incision: Yes Time Given: 07:36 Giorgio Grijalva MD Jun 22, 2019 08:28
--- NOTE | 2019-06-22 08:33 | Brief Operative Note ---
Immediate Post Operative Note Operative Note Pre-op Diagnosis: bladder tumor Procedure: TURBT RPG Post-op Diagnosis: same Post-op Diagnosis: same as pre-op Surgeon: Dalton Kelly Anesthesia: general Specimen: yes Complications: none Condition: stable Fluids: 500 Estimated Blood Loss: none Implant(s) used?: No Aristeo Kelly MD Jun 22, 2019 08:33
--- NOTE | 2019-06-22 08:52 | 48 Hour Post Anesthesia Eval ---
Post Anesthesia Evaluation Procedure: TURBT Date of Evaluation: Jun 22, 2019 Time of Evaluation: 11:23 Blood Pressure Systolic: 134 0: 73 Pulse Rate: 61 Respiratory Rate: 18 Temperature (Fahrenheit): 98.6 O2 Sat by Pulse Oximetry: 97 Airway: patent Nausea: No Vomiting: No Pain Intensity: 2 Hydration Status: adequate Cardiopulmonary Status: Stable Mental Status/LOC: patient returned to baseline Follow-up Care/Observations: 0 Post-Anesthesia Complications: 0 Follow-up care needed: ready to discharge Giorgio Grijalva MD Jun 22, 2019 08:52
--- NOTE | 2019-06-22 14:20 | Diagnostic Imaging Report ---
Indication: Intraoperative imaging COMPARISON: None FINDINGS: Multiple fluoroscopic images were obtained intraoperatively. Images showing contrast opacification of the ureter bilaterally. Please refer to the operative note. 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 The bladder is not demonstrated. IMPRESSION: Intraoperative imaging as described above
[2019-06-22] MEDS ORDERED: Tylenol #3 tab (300mg/30mg) ORAL PRN (15:00)
[2019-06-22] MEDS ORDERED: HYDROmorphone 1mg/ml Carpuject SUBQ PRN (15:00)
[2019-06-22] MEDS ORDERED: D5 1/2NS 1,000 ML IV SCH (15:00)
--- NOTE | 2019-06-24 21:45 | Operative Note - Dictated ---
DATE OF OPERATION: 06/22/2019 PREOPERATIVE DIAGNOSIS: Bladder tumor. POSTOPERATIVE DIAGNOSIS: Bladder tumor. OPERATION: Transurethral resection of the bladder tumor. OPERATED BY: Aristeo Kelly M.D. ANESTHESIA: General. FINDINGS: Tumor close to the left ureteral orifice approximately 25 cm. INDICATIONS FOR SURGERY: The patient had radical prostatectomy for prostate cancer followed by implantation of penile prosthesis. He had a routine followup cystoscopy that showed a new growth in the bladder. It was suggested of transitional cell carcinoma. Treatment options were explained to the patient in great length. He understood the nature of the procedure and signed consent. DESCRIPTION OF PROCEDURE: He was brought to the operating room, placed in lithotomy position, prepped and draped in standard fashion. Under general anesthesia. Cystoscope was introduced into the bladder. Bilateral retrograde pyelograms were performed showing normal upper tracts. After that, resectoscope was introduced and the tumor was resected sequentially and removed for pathologic examination. Tumor bed was fulgurated. Rodney catheter 18-J[place]ican was placed and left indwelling. The patient tolerated the procedure well. No evidence of complications. Aristeo Kelly M.D. DR: MARJAN JOB#: [id number] CC:
== END 2019-06-22 10:30 | disposition home or self-care (01) ==
LOC: SUR 05:43
DX: D49.4 Neoplasm of unspecified behavior of bladder (principal); I10 Essential (primary) hypertension; E11.9 Type 2 diabetes mellitus without complications; Z85.46 Personal history of malignant neoplasm of prostate; Z90.79 Acquired absence of other genital organ(s)
CPT/HCPCS: 52234; 74420; 76000; 82962; C1769; J0131; J0690; J2001; J2250; J2405; J2704; J2710; J3010; 94003; 94150